=== PATIENT | female | born 1965 | race African-American/Black ===

== ENCOUNTER → 2016-06-28 | Outpatient (CLI) | payer MEDICARE | END | disposition home or self-care (01) | LOC: PCVCCLINIC 12:49 | PROVIDERS: ATTEND Internal Medicine | DX: R07.9 Chest pain, unspecified (principal); E78.5 Hyperlipidemia, unspecified; I65.29 Occlusion and stenosis of unspecified carotid artery; E11.9 Type 2 diabetes mellitus without complications; I10 Essential (primary) hypertension | CPT/HCPCS: 80061; 93005; G0463 ==

== ENCOUNTER → 2016-07-23 | Outpatient (CLI) | payer BC, MEDICARE | END | disposition home or self-care (01) | LOC: PCVCIMAG 09:40 | PROVIDERS: ATTEND Internal Medicine | DX: I65.23 Occlusion and stenosis of bilateral carotid arteries (principal) | CPT/HCPCS: 93005; 93880 ==

== ENCOUNTER → 2016-09-19 | Outpatient (CLI) | payer BC ==
[~2016-09-19] MED LIST: REGADENOSON 0.4 MG/5 ML DISP.SYRIN. IV ONE
--- NOTE | 2016-09-19 15:29 | PCVCIMAG ---
APPROVED REPORT Exam: Nuclear Stress Test Indication: Chest pain , Pre-Operative CV evaluation Patient Location: Out-Patient Stress Nurse: Shelby Chowdhury RN, AYDEE Price Tech:Ghazal KARL Bess Ht: 5 ft 6 in Wt: 205 lbs BSA: 2.02 m2 HR: 82 bpm BP: 161/89 mmHg BMI: 33.0 Rhythm: NSR Medical History Medical History: Hyperlipidemia, HTN, Diabetic Insulin, CVD Medications: ASA, Edarbyclor, Lantus, Metformin, Proair, Carvedilol Allergies: many non related to test. See chart. Cardiac Risk Factors: Age Pretest Chest Pain Characteristics: No chest pain Exercise History: Physically active Physical Disabilities: physical limitations Meds Held (24 hrs): all medications held per patient decision NM EXAM: Myocardial Perfusion REST/STRESS Imaging Protocol: Rest Tc-99m/Stress Tc-99m 1 day Resting Data Rest SPECT myocardial perfusion imaging was performed in supine position 45 minutes following the intravenous injection of 15.1 mCi of Tc-99m Sestamibi. Time of rest injection: 0910 Date: 09/19/2016 Pharmacologic Stress Pharmacologic stress test was performed by injecting Regadenoson 0.4 mg IV push followed by the intravenous injection of 41.7 mCi of Tc-99m Sestamibi. Time of stress injection: 1030 Date: 09/19/2016 Administration Route: IV Administration Site: Right Hand Gated Stress SPECT was performed 45 minutes after stress injection. The images were gated to evaluate regional wall motion and calculate left ventricular ejection fraction. Study Quality Study: Good Study Data Post stress, the left ventricular ejection was 75%.. SSS: 2 SRS: 3 SDS: 0 TID = 0.85. Perfusion No evidence of stress induced ischemia or prior myocardial infarction. Wall Motion Normal left ventricular size and function with no regional wall motion abnormalities. Nuclear Conclusion No evidence of stress induced ischemia or prior myocardial infarction. Normal left ventricular size and function with no regional wall motion abnormalities. Post stress, the left ventricular ejection was 75%.. No prior study available for comparison. Interpreted by: Justin Encarnacion MD Electronically Approved: 09/19/2016 15:08:22 Stress Test Details Stress Test: Pharmacologic stress was paired with low level exercise. Reason for pharmacologic stress test: physical limitation. HR Resting HR: 82 bpmMax Heart Rate (APMHR): 168 bpm Max HR Achieved: 146 bpmTarget HR (85% APMHR): 142 bpm % of APMHR: 86 Recovery HR: 84 bpm BP Resting BP: 161/89 mmHg Max BP: 140/70 mmHg Recovery BP: 159/82 mmHg ECG Resting ECG: Sinus Rhythm Stress ECG: Sinus Tachycardia ST Change: None Recovery ECG: Sinus Rhythm, nonspecific ST-T abnormalities Recovery ST Change: None Recovery Arrhythmia: None Clinical Reason for Termination: Completed protocol Stress Symptoms: Dyspnea, Abdominal discomfort, Headache Exercise duration: 4 min 00 sec Exercise capacity: 1.6 METs Symptoms resolved during recovery. Stress ECG Conclusion ECG: Non-ischemic Clinical: Non-ischemic <Conclusion> ECG: Non-ischemic Clinical: Non-ischemic
== END | disposition home or self-care (01) ==
LOC: PCVCIMAG 08:33
PROVIDERS: ATTEND Internal Medicine
DX: Z01.810 Encounter for preprocedural cardiovascular examination (principal); E78.5 Hyperlipidemia, unspecified; I10 Essential (primary) hypertension; E11.9 Type 2 diabetes mellitus without complications; R00.0 Tachycardia, unspecified; I65.29 Occlusion and stenosis of unspecified carotid artery; K21.9 Gastro-esophageal reflux disease without esophagitis; Z79.82 Long term (current) use of aspirin; Z79.4 Long term (current) use of insulin; Z90.710 Acquired absence of both cervix and uterus; Z79.84 Long term (current) use of oral hypoglycemic drugs
CPT/HCPCS: 78452; 93017; A9500; J2785

== ENCOUNTER → 2016-12-17 | Outpatient (CLI) | payer BC ==
[~2016-12-17] MED LIST changes: +CLOPIDOGREL BISULFATE 75 MG TABLET ONE; +DIAZEPAM 10 MG TABLET. ONE; +EPTIFIBATIDE BOLUS 2,000 MCG/ML 10ML VIAL. IV ONE; +FAMOTIDINE 20 MG/2 ML VIAL ONE; +HEPARIN SODIUM 5,000 UNIT/ML VIAL for PCVC. ONE; +IODIXANOL 270 MG/ML 100 ML VIAL. ONE; +IOHEXOL 300 MG/ML 100ML VIAL. ONE; +IV NORMAL SALINE 500ML BAG 500 ML ONE; +LIDOCAINE 1% Multi-Dose 20 ML VIAL. ONE; +LIDOCAINE 1%/EPI 1:100,000 20 ML VIAL. ONE; +MIDAZOLAM HCL/PF 2 MG/2 ML VIAL. ONE; +NITROGLYCERIN PREMIX 250 ML IV ONE; -REGADENOSON 0.4 MG/5 ML DISP.SYRIN. IV ONE; +diphenhydrAMINE 50 MG/ML VIAL ONE; +fentaNYL PF VIAL 100 MCG/2 ML VIAL ONE; +hydrALAZINE 20 MG/ML VIAL. ONE; +methylPREDNISolone SOD SUCC PF 125 MG/2 ML VIAL. ONE
--- NOTE | 2016-12-17 11:02 | PCVCINTER ---
EXAM: 1. CERVICOEPHALIC ARCH AORTOGRAM 2. BILATERAL CAROTID ANGIOGRAPHY 3. LEFT VERTEBROBASILAR ANGIOGRAPHY 4. BILATERAL RENAL ANGIOGRAPHY 5. LEFT SUPERFICIAL FEMORAL ARTERY ATHERECTOMY AND STENT PLACEMENT. 6. SECONDARY THROMBECTOMY LEFT SUPERFICIAL FEMORAL ARTERY. 7. DRUG COATED BALLOON ANGIOPLASTY LEFT SUPERFICIAL FEMORAL ARTERY. INDICATION: Carotid occlusive disease. Left subclavian steal. Hypertension. Renal atherosclerosis. Peripheral arterial disease. Bilateral lower extremity claudication. PROCEDURE: Procedure and risks of the procedures listed above were discussed with the patient and consent obtained. Risks including but not limited to bleeding, infection, stroke, vascular injury, neurologic injury, embolization, allergic reactions, and contrast-induced nephropathy requiring dialysis were discussed as appropriate and consent obtained. Patient was placed on the angiography table. IV conscious sedation was utilized with appropriate monitoring for 60 minutes. The right groin was prepped and draped in the normal sterile fashion. Ultrasound was used to interrogate the right groin and demonstrate the right common femoral artery. An ultrasound image was saved. Under ultrasound guidance a 21 gauge needle was used to gain access into the right common femoral artery and a 6F vascular sheath was placed. Catheter was placed into the ascending aorta and cervicocephalic aortic arch angiogram performed. Catheter was placed into the suprarenal abdominal aorta and abdominal aortic angiogram performed. Catheter was placed into the right common carotid artery and right common carotid angiogram performed. Catheter was placed into the left common carotid artery and left common carotid angiogram performed. Catheter was placed into the left subclavian artery and left vertebro-basilar angiogram performed. Catheter was positioned into the right external iliac artery and right leg runoff angiography was performed. Catheter was exchanged for a visceral catheter was placed into the right renal arteries and right renal angiograms obtained. Catheter was placed into the the left renal arteries and left renal angiograms were obtained. Catheter was advanced to the level of the left external iliac artery and left leg runoff angiography was obtained. Patient was given 4500 units of heparin. A 6 [place] crossover sheath was placed via the right groin to the level of the left common femoral artery. Atherectomy of the left superficial femoral artery was performed with 2.0 mm Careem laser atherectomy catheter in the standard fashion. Following atherectomy small areas of thrombus were observed and because of this secondary thrombectomy throughout the left superficial femoral artery was carried out with mechanical suction thrombectomy catheter in the standard fashion. Minimal debris was removed. Stent placement across the areas of high-grade stenosis in the left superficial femoral artery was carried out with a 6 x 60 Smart control stent and 6 x 20 Smart control stent with subsequent dilatation to 6.0 mm. Following this drug coated balloon angioplasty of the left superficial femoral artery was carried out with a 6 x 80 and 6 x 60 [employer] Admiral [employer] catheters. Follow-up angiogram was performed. Catheters and wires removed. Sheath was removed and hemostasis obtained using the FISH device. No immediate complications. FINDINGS: Cervicocephalic arch aortogram: The origins of the great vessels are patent. Cranial directed flow in the vertebral arteries. Right common carotid angiogram: This injection fills the right anterior and middle cerebral distributions which are unremarkable. No significant plaque proximal internal carotid artery. The internal carotid, external carotid, and common carotid arteries all show adequate patency. Mild stenosis approximately 40% at the junction of the petrous and cavernous carotid artery. 1.9 mm aneurysm projecting posteriorly from the junction of the C3/C4 cavernous internal carotid artery. Left common carotid angiogram: This injection fills the right and left anterior cerebral and the left middle cerebral distribution. Note is made of a 1.7 x 2.0 mm saccular aneurysm at the bifurcation of the middle cerebral artery and this projects laterally. Mildly irregular plaque proximal internal carotid artery results in maximum 60% stenosis. The common and external carotid arteries are patent. Left vertebrobasilar angiogram: The cervical left vertebral artery show satisfactory patency. Moderate plaque distal vertebral artery without high-grade stenosis. The basilar artery is patent although not optimally seen. Only faint filling of the posterior cerebral arteries are seen bilaterally likely due to technical factors. Aortogram: There is one right and one left renal artery. Moderate plaque infrarenal abdominal aorta without significant stenosis. Pelvis: Moderate plaque in the right and left common iliac arteries without significant stenosis. 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 The right and left external iliac arteries are patent. The right and left common femoral and profunda femoral arteries are patent. Right renal artery: Moderate plaque proximal vessel does not cause significant stenosis. Left renal artery: Moderate diffuse plaque proximal/mid main renal artery causes mild stenosis which is not flow-limiting. Right le% focal stenosis distal superficial femoral artery. Moderate plaque throughout the popliteal artery with focal 70% stenosis at the junction of the popliteal artery and tibioperoneal trunk. The posterior tibial artery shows complete occlusion throughout. The peroneal artery and anterior tibial artery show good patency throughout. Left le-80% stenosis proximal/mid superficial femoral artery. Distal superficial femoral artery and popliteal arteries show good patency. The anterior tibial, peroneal, and posterior tibial arteries are patent to provide runoff into the foot. Left superficial femoral artery: Following procedure as above vessel shows good patency. 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 65% stenosis proximal left internal carotid artery. No significant right carotid stenosis Significant proximal and mid left superficial femoral artery stenoses were treated as above with good patency restored. 80% stenosis distal right superficial femoral artery with 70% stenosis distal most right popliteal artery. LOC:[id number]
== END | disposition home or self-care (01) ==
LOC: PCVCINTER 07:16
PROVIDERS: ATTEND Nuclear Medicine Nuclear Cardiology
DX: I65.29 Occlusion and stenosis of unspecified carotid artery (principal); I70.213 Atherosclerosis of native arteries of extremities with intermittent claudication, bilateral legs; I70.1 Atherosclerosis of renal artery; G45.8 Other transient cerebral ischemic attacks and related syndromes; I10 Essential (primary) hypertension
CPT/HCPCS: 36223; 36225; 36252; 37186; 37227; 75716; 76937; 99152; 99153; C1725; C1751; C1757; C1760; C1769; C1876; C1885; C1894; C2623; J0360; J0690; J1200; J1644; J2250; J2930; J3010; J3490; J7040; Q9966; Q9967; S0028; 36222; J1327

== ENCOUNTER → 2017-01-14 | Outpatient (CLI) | payer BC | END | disposition home or self-care (01) | LOC: PCVCCLINIC 12:01 | PROVIDERS: ATTEND Internal Medicine | DX: I10 Essential (primary) hypertension (principal); E78.5 Hyperlipidemia, unspecified; I65.23 Occlusion and stenosis of bilateral carotid arteries; I73.9 Peripheral vascular disease, unspecified; E11.9 Type 2 diabetes mellitus without complications; R94.31 Abnormal electrocardiogram [ECG] [EKG]; Z79.4 Long term (current) use of insulin; Z79.82 Long term (current) use of aspirin; Z79.899 Other long term (current) drug therapy | CPT/HCPCS: 80061; 93005; G0463 ==

== ENCOUNTER → 2017-06-07 | Outpatient (CLI) | payer BC | END | disposition home or self-care (01) | LOC: PCVCIMAG 14:40 | DX: I65.23 Occlusion and stenosis of bilateral carotid arteries (principal); R09.89 Other specified symptoms and signs involving the circulatory and respiratory systems; I73.9 Peripheral vascular disease, unspecified | CPT/HCPCS: 93880; 93923; 93925 ==

== ENCOUNTER → 2017-07-02 | Outpatient (CLI) | payer BC | END | disposition home or self-care (01) | LOC: PCVCCLINIC 13:59 | DX: I10 Essential (primary) hypertension (principal); E78.5 Hyperlipidemia, unspecified; I77.9 Disorder of arteries and arterioles, unspecified; E11.9 Type 2 diabetes mellitus without complications; R94.31 Abnormal electrocardiogram [ECG] [EKG]; Z79.4 Long term (current) use of insulin; Z79.82 Long term (current) use of aspirin; Z79.899 Other long term (current) drug therapy | CPT/HCPCS: 80061; 93005; G0463 ==

== ENCOUNTER → 2018-01-01 | Outpatient (CLI) | payer BC | END | disposition home or self-care (01) | LOC: PCVCCLINIC 14:41 | PROVIDERS: ATTEND Internal Medicine | DX: I10 Essential (primary) hypertension (principal); I65.23 Occlusion and stenosis of bilateral carotid arteries; E78.5 Hyperlipidemia, unspecified; K74.60 Unspecified cirrhosis of liver; E11.9 Type 2 diabetes mellitus without complications; Z79.4 Long term (current) use of insulin; Z88.8 Allergy status to other drugs, medicaments and biological substances; Z79.82 Long term (current) use of aspirin; Z79.899 Other long term (current) drug therapy | CPT/HCPCS: 80061; 93005; G0463 ==

== ENCOUNTER → 2018-03-03 | Outpatient (CLI) | payer BC ==
--- NOTE | 2018-03-03 16:54 | PCVCIMAG ---
EXAM: BILATERAL CAROTID DUPLEX INDICATION: Carotid Occlusive Disease. FINDINGS: Doppler Measurements (centimeters per second): RIGHT: Peak CCA-81, Peak ECA-112, Diastolic ICA-55, Peak ICA-135, ICA/CCA Ratio-1.7. LEFT: Peak CCA-84, Peak ECA-114, Diastolic ICA-137, Peak ICA-303, ICA/CCA Ratio-3.6. RIGHT CAROTID: The carotid bulb has mild plaque. The proximal internal carotid artery shows 40-50% stenosis. The common carotid artery shows no significant stenosis. The external carotid artery shows no significant stenosis. LEFT CAROTID: The carotid bulb has moderate plaque. The proximal internal carotid artery shows 70-80% stenosis. The common carotid artery shows no significant stenosis. The external carotid artery shows no significant stenosis. Antegrade flow in both vertebral arteries. IMPRESSION: 40-50% stenosis of the right internal carotid artery with mild plaque is similar to ultrasound dated May 2017. December 2016 conventional angiogram showed right internal carotid artery to be widely patent. 70-80% stenosis of the left internal carotid artery by ultrasound criteria today is unchanged since May 2017. Previous angiogram from December 2016 showed similar ultrasound measurements to represent 65% left internal carotid artery stenosis. Ultrasound has consistently overestimated the degree of stenosis in this patient. LOC:[id number]
--- NOTE | 2018-03-03 23:53 | PCVCIMAG ---
EXAM: NONINVASIVE ARTERIAL EXAMINATION OF BOTH LOWER EXTREMITIES INCLUDING PRE AND POST EXERCISE PRESSURE MEASUREMENTS AND DOPPLER WAVEFORMS INDICATION: Peripheral Arterial Disease. Leg pain. FINDINGS: Right Brachial: 116 mm Hg. Right Dorsalis Pedis: 112 mm Hg. Right Posterior Tibial: 105 mm Hg. Right TONIE = 0.97. Left Brachial: 114 mm Hg. Left Dorsalis Pedis: 102 mm Hg. Left Posterior Tibial: 115 mm Hg. Left TONIE = 0.99. Post Exercise: Right Brachial 123 mm Hg. Right Dorsalis Pedis: 75 mm Hg. Left Posterior Tibial: 103 mm Hg. Right TONIE = 0.61. Left TONIE = 0.84. IMPRESSION: No resting ischemia in the right lower extremity. Moderate exercise induced ischemia in the right lower extremity. No resting ischemia in the left lower extremity. Minimal exercise induced ischemia in the left lower extremity. LOC:OFFICE
--- NOTE | 2018-03-03 23:59 | PCVCIMAG ---
EXAM: BILATERAL LOWER EXTREMITY ARTERIAL DUPLEX INDICATION: Peripheral Arterial Disease. Leg pain. FINDINGS: Right Leg: Common femoral and profunda femoral arteries are patent. Increased systolic velocity 337 cm/s distal the [place] superficial femoral artery consistent with 80% stenosis. Increased systolic velocity 290 cm/s distal popliteal artery consistent with 70-80% stenosis. Occlusion of the posterior tibial artery. The peroneal and anterior tibial arteries are patent. Left Leg: Satisfactory arterial waveforms throughout the common/profunda/superficial femoral, popliteal, anterior tibial, peroneal, and posterior tibial arteries. No flow limiting stenosis seen. Previous mid superficial femoral artery stent maintaining satisfactory patency. IMPRESSION: 80% stenosis distal the [place] right superficial femoral artery. 70-80% distal the [place] right popliteal artery. No flow limiting stenosis in the left lower extremity. Previous mid left superficial femoral artery stent maintaining satisfactory patency. LOC:OFFICE
== END | disposition home or self-care (01) ==
LOC: PCVCIMAG 13:10
PROVIDERS: ATTEND Nuclear Medicine Nuclear Cardiology
DX: I65.23 Occlusion and stenosis of bilateral carotid arteries (principal); I73.9 Peripheral vascular disease, unspecified
CPT/HCPCS: 93880; 93924; 93925

== ENCOUNTER → 2018-03-05 | Outpatient (CLI) | payer BC | END | disposition home or self-care (01) | LOC: PCVCCLINIC 10:25 | PROVIDERS: ATTEND Nuclear Medicine Nuclear Cardiology | DX: I73.9 Peripheral vascular disease, unspecified (principal); I65.29 Occlusion and stenosis of unspecified carotid artery; I25.10 Atherosclerotic heart disease of native coronary artery without angina pectoris; I10 Essential (primary) hypertension; I67.1 Cerebral aneurysm, nonruptured; E11.9 Type 2 diabetes mellitus without complications; E78.00 Pure hypercholesterolemia, unspecified; K21.9 Gastro-esophageal reflux disease without esophagitis; Z79.4 Long term (current) use of insulin; Z79.82 Long term (current) use of aspirin; Z79.84 Long term (current) use of oral hypoglycemic drugs; Z88.8 Allergy status to other drugs, medicaments and biological substances | CPT/HCPCS: 93005; G0463 ==

== ENCOUNTER → 2018-09-08 | Outpatient (CLI) | payer BC ==
--- NOTE | 2018-09-08 10:38 | PCVCIMAG ---
APPROVED REPORT Indications Stenosis Doppler Spectral Velocity Analysis PSV / EDVPSV / EDV ECA (R) 106 / 18 cm/sECA (L) 119 / 16 cm/s dICA (R) 106 / 34 cm/sdICA (L) 59 / 19 cm/s [place] (R) 100 / 39 cm/smICA (L) 283 / 93 cm/s pICA (R) 60 / 21 cm/spICA (L) 303 / 108 cm/s Bulb (R) 68 / 19 cm/sBulb (L) 66 / 21 cm/s dCCA (R) 78 / 19 cm/sdCCA (L) 77 / 22 cm/s mCCA (R) 76 / 16 cm/smCCA (L) 87 / 25 cm/s Vert (R) 46 / 12 cm/sVert (L) 45 / 14 cm/s ICA/CCA 1.36 ICA/CCA 3.49 Basic Measurements Blood Pressure: Pulses: Right Left RightLeft Brachial(Sitting) 130/31grUa174/80mmHgTemporal Real Time B-Mode Imaging Vert. (R)AntegradeVert. (L)Antegrade Findings RIGHT CAROTID: The carotid bulb has mild plaque. The proximal internal carotid artery shows <40% stenosis. The common carotid artery shows no significant stenosis. The external carotid artery shows no significant stenosis. LEFT CAROTID: The carotid bulb has moderate plaque. The proximal internal carotid artery shows 70-80% stenosis. The common carotid artery shows no significant stenosis. The external carotid artery shows no significant stenosis. Conclusion <40% stenosis of the right internal carotid artery with mild plaque. 70-80% stenosis of the left internal carotid artery with moderate plaque. Left carotid stenosis is similar compared to February 2018 study. Previous angiogram from December 2016 showed similar ultrasound measurements to represents 65% angiographic stenosis.
--- NOTE | 2018-09-08 17:18 | PCVCIMAG ---
EXAM: NONINVASIVE ARTERIAL EXAMINATION OF BOTH LOWER EXTREMITIES INCLUDING PRE AND POST EXERCISE PRESSURE MEASUREMENTS AND DOPPLER WAVEFORMS INDICATION: Peripheral Arterial Disease. Leg pain. FINDINGS: Right Brachial: 150 mm Hg. Right Dorsalis Pedis: 131 mm Hg. Right Posterior Tibial: 144 mm Hg. Right TONIE = 0.94. Left Brachial: 153 mm Hg. Left Dorsalis Pedis: 153 mm Hg. Left Posterior Tibial: 153 mm Hg. Left TONIE = 1.00. Post Exercise: Left Brachial 139 mm Hg. Right Posterior Tibial: 133 mm Hg. Left Posterior Tibial: 155 mm Hg. Right TONIE = 0.96. Left TONIE = 1.12. IMPRESSION: No resting ischemia in the right lower extremity. No exercise induced ischemia in the right lower extremity. No resting ischemia in the left lower extremity. No exercise induced ischemia in the left lower extremity. LOC:[id number]
--- NOTE | 2018-09-08 17:23 | PCVCIMAG ---
EXAM: BILATERAL LOWER EXTREMITY ARTERIAL DUPLEX INDICATION: Peripheral Arterial Disease. Leg pain. FINDINGS: Right Leg: Common femoral profunda femoral arteries are patent. Presystolic velocity 317 cm/s distal [place] superficial femoral artery consistent with 70% stenosis unchanged since February 2018 study. Increased systolic velocity 335 cm/s distal [place] popliteal artery consistent with a 70% stenosis also unchanged. Unchanged occlusion posterior tibial artery. Anterior tibial and peroneal arteries are patent. Left Leg: Satisfactory arterial waveforms throughout the common/profunda/superficial femoral, popliteal, anterior tibial, peroneal, and posterior tibial arteries. No flow limiting stenosis seen. Previous mid superficial femoral artery stent maintaining satisfactory patency. IMPRESSION: Unchanged 70% stenosis distal [place] right superficial femoral artery. 70% stenosis distal [place] right popliteal artery is unchanged. Unchanged occlusion right posterior tibial artery. No flow limiting stenosis in the left lower extremity. Previous mid left superficial femoral artery stent maintaining satisfactory patency. LOC:[id number]
== END | disposition home or self-care (01) ==
LOC: PCVCIMAG 09:09
PROVIDERS: ATTEND Nuclear Medicine Nuclear Cardiology
DX: I65.23 Occlusion and stenosis of bilateral carotid arteries (principal); I73.9 Peripheral vascular disease, unspecified; E78.5 Hyperlipidemia, unspecified; E11.9 Type 2 diabetes mellitus without complications; E78.00 Pure hypercholesterolemia, unspecified; Z88.0 Allergy status to penicillin; Z88.2 Allergy status to sulfonamides; Z91.041 Radiographic dye allergy status
CPT/HCPCS: 93880; 93924; 93925

== ENCOUNTER → 2018-09-16 | Outpatient (CLI) | payer BC | END | disposition home or self-care (01) | LOC: PCVCCLINIC 09:00 | PROVIDERS: ATTEND Nuclear Medicine Nuclear Cardiology | DX: I73.9 Peripheral vascular disease, unspecified (principal); I77.9 Disorder of arteries and arterioles, unspecified; I67.1 Cerebral aneurysm, nonruptured; I10 Essential (primary) hypertension; I25.10 Atherosclerotic heart disease of native coronary artery without angina pectoris; E11.9 Type 2 diabetes mellitus without complications; K74.60 Unspecified cirrhosis of liver; E78.00 Pure hypercholesterolemia, unspecified; K21.9 Gastro-esophageal reflux disease without esophagitis; E78.5 Hyperlipidemia, unspecified; Z88.1 Allergy status to other antibiotic agents; Z88.8 Allergy status to other drugs, medicaments and biological substances | CPT/HCPCS: G0463 ==

== ENCOUNTER → 2019-01-06 | Outpatient (CLI) | payer BC | END | disposition home or self-care (01) | LOC: PCVCCLINIC 14:30 | PROVIDERS: ATTEND Internal Medicine | DX: I10 Essential (primary) hypertension (principal); E78.5 Hyperlipidemia, unspecified; E11.9 Type 2 diabetes mellitus without complications; K74.60 Unspecified cirrhosis of liver; Z79.4 Long term (current) use of insulin; K21.9 Gastro-esophageal reflux disease without esophagitis; Z79.899 Other long term (current) drug therapy; Z88.1 Allergy status to other antibiotic agents; Z88.8 Allergy status to other drugs, medicaments and biological substances | CPT/HCPCS: 36415; 80061; 93005; G0463 ==